=== PATIENT | female | born 1950 | race Caucasian/White ===

== ENCOUNTER 2016-04-25 10:07 | Emergency (ER) | payer OTHER ==
[~2016-04-25] VITALS: Ht 175.3 cm; Wt 60.9 kg
[~2016-04-25 10:07] MED LIST: AMOXICILLIN875 MG PO; CARDIZEM CD360 MG PO; CARDIZEM60 MG PO; CO Q-10200 MG PO; CRANBERRY500 MG PO; DILTIAZEM 24HR240 MG PO; ELIQUIS5 MG PO; FISH OIL SOFTG1 EACH PO; FLECAINIDE ACET50 MG PO; MULTIVITAMIN1 EAC2 PO; ONE DAILY ESS400 MCG PO; SALINE NASAL SP45 ML BOTH NARES; ZITHROMAX500 MG PO
[2016-04-25 12:20] LABS: HEMATOCRIT 42.2 % (36.0-46.0); MCH 29.7 PG (29.0-34.0); MEAN PLAT.VOLUME 10.3 uM^3 (9.5-12.4); PLATELET COUNT 195 K/uL (156-360); RBC DIS.WIDTH-CV 13.6 % (11.8-14.6); RBC DIS.WIDTH-SD 44.2 % (39-53); RED BLOOD COUNT 4.54 M/uL (3.80-5.20); WHITE BLOOD COUNT 6.6 K/uL (4.1-10.2)
[2016-04-25 12:29] LABS: CHLORIDE 104 mEq/L (99-109); POTASSIUM 5.2 mEq/L (3.7-5.4); SODIUM 141 mEq/L (136-147)
[2016-04-25 12:31] LABS: GLUCOSE 101 mg/dL (70-99)
[2016-04-25 12:32] LABS: ANION GAP 9 MEQ/L (2-14); INTER. NORMALIZED RATIO 1.1; PROTHROMBIN TIME 11.4 (9.2-11.2); PTT 28.5 (25-32)
[2016-04-25 12:34] LABS: GFR ESTIMATE (CALCULATED) > 59 mL/min/
[2016-04-25 12:35] LABS: UREA NITROGEN (BUN) 11 mg/dL (9-23)
[2016-04-25] MEDS ORDERED: TOBREX3.5 GM LEFT EYE (12:47)
[2016-04-25 13:11] VITALS: BP 110/60
== END 2016-04-25 13:12 | disposition home or self-care (01) ==
LOC: EME 10:07 → EXP 10:07
PROVIDERS: Physician Assistant
DX: H11.32 Conjunctival hemorrhage, left eye (principal); S05.12XA Contusion of eyeball and orbital tissues, left eye, initial encounter; W01.198A Fall on same level from slipping, tripping and stumbling with subsequent striking against other object, initial encounter; I48.91 Unspecified atrial fibrillation; Z79.01 Long term (current) use of anticoagulants
CPT/HCPCS: 70450; 70480; 80048; 85027; 85610; 85730; 99281; 99284

== ENCOUNTER → 2016-08-31 | Day surgery (SDC) | payer OTHER ==
[~2016-08-31] VITALS: Ht 175.3 cm; Wt 62.1 kg
[~2016-08-31] MED LIST changes: +CARDIZEM SR120 MG PO; +TOBREX3.5 GM LEFT EYE
== END | disposition home or self-care (01) ==
LOC: CATH 09:01
PROC: 5A2204Z Restoration of Cardiac Rhythm, Single (ICD-10-PCS; principal; 2016-08-31)
DX: I48.0 Paroxysmal atrial fibrillation (principal); R00.2 Palpitations; I34.2 Nonrheumatic mitral (valve) stenosis; R00.1 Bradycardia, unspecified; K21.9 Gastro-esophageal reflux disease without esophagitis; Z82.49 Family history of ischemic heart disease and other diseases of the circulatory system; Z80.1 Family history of malignant neoplasm of trachea, bronchus and lung; Z82.5 Family history of asthma and other chronic lower respiratory diseases
CPT/HCPCS: 93005

== ENCOUNTER 2017-09-02 08:54 | Day surgery (SDC) | payer OTHER ==
[~2017-09-02] VITALS: Ht 175.3 cm; Wt 63.5 kg
== END 2017-09-02 11:55 | disposition home or self-care (01) ==
LOC: CATH 08:54
PROC: 5A2204Z Restoration of Cardiac Rhythm, Single (ICD-10-PCS; principal; 2017-09-02)
DX: I48.91 Unspecified atrial fibrillation (principal); I45.10 Unspecified right bundle-branch block; Z79.01 Long term (current) use of anticoagulants
CPT/HCPCS: 93005; J3010